=== PATIENT | male | born 1965 | race Caucasian/White ===

== ENCOUNTER 2021-10-20 06:13 | Emergency (ER) | payer BC ==
[~2021-10-20] VITALS: Ht 177.8 cm; Wt 98.0 kg
[2021-10-20] MEDS ORDERED: KETOROLAC 60MG/2ML VIAL IM ONE (06:45)
[2021-10-20] MEDS ORDERED: OXYCODONE HCL/ACETAMINOPHEN 5/325MG TABLET PO ONE (06:45)
[2021-10-20 06:48] VITALS: BP 145/84
[2021-10-20] MEDS ORDERED: IBUP-2028 PO ×3 (07:19→13:34)
[2021-10-20] MEDS ORDERED: T3 PO ×3 (07:19→13:34)
== END 2021-10-20 07:38 | disposition home or self-care (01) ==
LOC: ER 06:38
DX: M54.50 Low back pain, unspecified (principal); Z87.828 Personal history of other (healed) physical injury and trauma; Z88.0 Allergy status to penicillin
CPT/HCPCS: 96372; 99283; J1885